=== PATIENT | male | born 1985 | race Caucasian/White ===

== ENCOUNTER 2018-02-14 21:21 | Emergency (ER) | payer OTHER ==
[~2018-02-14] VITALS: Ht 190.5 cm; Wt 93.0 kg
[2018-02-14] MEDS ORDERED: LISI5 PO (21:46)
[2018-02-14] MEDS ORDERED: METO25ER PO (21:47)
== END 2018-02-14 22:52 | disposition home or self-care (01) ==
LOC: ER 21:21
DX: R21 Rash and other nonspecific skin eruption (principal); I10 Essential (primary) hypertension; Z79.899 Other long term (current) drug therapy
CPT/HCPCS: 99281